=== PATIENT | female | born 1990 | race Caucasian/White ===

== ENCOUNTER 2022-04-26 00:30 | Emergency (ER) | payer SELFPAY ==
[~2022-04-26] VITALS: Ht 170.2 cm; Wt 81.6 kg
[~2022-04-26 00:30] MED LIST: ACET-7740 PO; IBUP-1842 PO
[2022-04-26 00:39] VITALS: BP 132/74
[2022-04-26] MEDS ORDERED: KETOROLAC 60 MG/2 ML VIAL IM ONE (01:15)
[2022-04-26] MEDS ORDERED: cefTRIAXone 1,000 MG in LIDOCAINE MPF 1% 2.1 ML IM ONE (01:15)
[2022-04-26] MEDS ORDERED: cefTRIAXone 1,000 MG VIAL ONE (01:17)
[2022-04-26] MEDS ORDERED: LIDOCAINE MPF 1% 5 ML ONE (01:18)
[2022-04-26] MEDS ORDERED: NAPR-54 PO (01:54)
[2022-04-26] MEDS ORDERED: NITR100C7 PO (01:54)
[2022-04-26 01:58] VITALS: BP 122/63
== END 2022-04-26 01:58 | disposition home or self-care (01) ==
LOC: MED 00:30
DX: N39.0 Urinary tract infection, site not specified (principal); Z79.899 Other long term (current) drug therapy; Z79.1 Long term (current) use of non-steroidal anti-inflammatories (NSAID)
CPT/HCPCS: 81002; 81025; 96372; 99284; J0696; J1885; J2001